=== PATIENT | female | born 1995 ===

== ENCOUNTER 2016-12-28 03:49 | Emergency (ER) | payer OTHER ==
[~2016-12-28] VITALS: Ht 172.7 cm; Wt 81.3 kg
[2016-12-28 03:56] VITALS: TEMP 36.4; Ht 172.7 cm; Wt 81.3 kg
--- NOTE | 2016-12-28 04:20 | EMERGENCY ROOM VISIT NOTE ---
History Report prepared by Kevin: Landon Chapa Under the Supervision of: Dr. Rosa Corona D.O. First contact with patient: 03:55 Chief Complaint: ALCOHOL OVERDOSE Stated Complaint: ALCOHOL Nursing Triage Summary: per ems pt [place] banging on doors. people left her in and she vomited all over. ems was then called. pt responding to painful stimuli only History of Present Illness The patient is a 21 year old female who presents to the Emergency Room with an alcohol overdose. Nursing staff states the patient went into the wrong apartment , and she vomited everywhere. They called EMS. HPI limited secondary to the patient's intoxication. Source of History: nursing staff History Limited By: intoxication Review of Systems ROS is limited secondary to the patient's intoxication. Past Medical & Surgical Unobtainable secondary to the patient's intoxication. Family History Unobtainable secondary to the patient's intoxication. Social History Smoking Status: Unknown if Ever Smoked Occupation Status: [employer] student Current/Historical Medications Unable to Obtain Active Prescriptions or Reported Meds Physical Exam Vital Signs Date Time Temp Pulse Resp B/P (MAP) Pulse Ox O2 Delivery O2 Flow Rate FiO2 12/28/16 08:06 76 20 120/65 99 12/28/16 08:01 76 20 120/65 99 12/28/16 06:01 68 15 118/70 100 Room Air 12/28/16 05:00 72 18 105/77 98 Room Air 12/28/16 03:56 36.4 57 16 104/67 94 Room Air 12/28/16 03:55 59 Physical Exam General: Patient is unresponsive, snoring, and smells of vomit. HEENT: Head - normocephalic and atraumatic Pupils are 3mm and non-reactive to light. Extraocular eye muscles are intact, and sclera are anicteric. Nose - moist nasal mucosa without discharge. Mouth - moist buccal mucosa. Oropharynx is nonerythematous and there is no tonsillar exudate or edema noted. Neck: Supple; no JVD, nuchal rigidity, cervical lymphadenopathy. Heart: Regular rate and rhythm. There is a normal S1 and S2 with no murmurs, clicks, or gallops appreciated. Lungs: Clear to auscultation bilaterally with no wheezes, rales, or rhonchi. Abdomen: Soft, completely nontender, nondistended, with good bowel sounds. There are no palpable pulsatile masses or hepatosplenomegaly. There is no guarding, rigidity, or rebound noted. Extremities: No evidence of cyanosis, clubbing, or edema. There are easily palpable peripheral pulses. Skin: warm and dry with good turgor and no rashes. Medical Decision & Procedures Laboratory Results 12/28/16 03:58 Test 12/28/16 03:58 Anion Gap 9.0 mmol/L (3-11) Est Creatinine Clear Calc Drug Dose 121.4 ml/min Estimated GFR () 118.6 Estimated GFR (Non- 102.3 BUN/Creatinine Ratio 14.7 (10-20) Calcium Level 8.7 mg/dl (8.5-10.1) Ethyl Alcohol mg/dL 204.0 mg/dl (0-3) Laboratory results per my review. ED Course 0406: Past medical records reviewed. The patient was evaluated in room A12A. A complete history and physical exam was performed. Labs were drawn as above. The patient was placed in the prone position to avoid aspiration. She was observed on the editing internship and pulse oximeter. 0459: I reevaluated the patient. She is sound asleep and hemodynamically stable. 0615: The patient is sleeping at this time and vitals are stable. 0751: Upon reevaluation, the patient is awake and alert. I discussed findings and results with her. She verbalized agreement of the treatment plan. The patient was discharged home. Medical Decision The patient is a 21 year old female who presents to the ED with an alcohol overdose. Differential diagnosis includes alcohol overdose, drug intoxication, hypoglycemia, and closed head injury. Lab results show: alcohol of 204, normal renal function, glucose of 135 This is a 21-year-old female patient who was brought to the emergency department after consuming too much alcohol and vomiting. She was kept here in the emergency department under observation until she was more sober. I encouraged her to avoid such excessive alcohol use in the future. She will need to keep herself well-hydrated. Impression Primary Impression: Alcohol overdose Scribe Attestation The scribe's documentation has been prepared under my direction and personally reviewed by me in its entirety. I confirm that the note above accurately reflects all work, treatment, procedures, and medical decision making performed by me. Departure Information Dispostion Home / Self-Care Prescriptions Unable to Obtain Active Prescriptions or Reported Meds Forms HOME CARE DOCUMENTATION FORM, IMPORTANT VISIT INFORMATION Patient Instructions ED Overdose Alcohol, [facility]: [employer] Students and Alcohol Related Visits, My [facility] Additional Instructions Rest Avoid such excessive alcohol use in the future. Take plenty of clear liquids Use tylenol for headache Problem Qualifiers Primary Impression: Alcohol overdose Encounter type: initial encounter Injury intent: accidental or unintentional Qualified Codes: T51.91XA - Toxic effect of unspecified alcohol , accidental (unintentional), initial encounter
[2016-12-28 04:27] LABS: BUN/CREATININE RATIO 14.7 (10-20); CALCIUM 8.7 mg/dl (8.5-10.1); CREATININE 0.82 mg/dl (0.60-1.20); POTASSIUM 3.7 mmol/L (3.5-5.1)
[2016-12-28 08:06] VITALS: BP 120/65; PULSE 76; O2SAT 99
== END 2016-12-28 08:07 | disposition home or self-care (01) ==
LOC: EDBD 03:49 → C.EDA 03:52
DX: T51.91XA Toxic effect of unspecified alcohol, accidental (unintentional), initial encounter (principal); Y90.7 Blood alcohol level of 200-239 mg/100 ml